=== PATIENT | female | born 1980 | race Caucasian/White ===

== ENCOUNTER 2021-03-04 18:01 | Observation (INO) | payer BC ==
[~2021-03-04] VITALS: Ht 162.6 cm; Wt 49.9 kg
[2021-03-04] MEDS ORDERED: ONDANSETRON HCL INJ 2MG/ML 2ML 2 MG/ML VIAL IV STA (18:10)
[2021-03-04] MEDS ORDERED: MORPHINE SULFATE INJ 4 MG/ML INJ 1ML IV ONE (18:15)
[2021-03-04] MEDS ORDERED: HYDROMORPHONE 1MG/1ML INJ IV STA (20:26)
[2021-03-04 20:32] LABS: BASOPHILS # (AUTO) 0.1 (0.0-0.1); BASOPHILS % 1.1 % (0.0-1.0); EOSINOPHILS # (AUTO) 0.1 (0.0-0.4); EOSINOPHILS % 1.7 % (0.0-6.0); HEMATOCRIT 26.3 % (34.2-44.1); LYMPHOCYTES # (AUTO) 1.6 (1.0-3.2); LYMPHOCYTES % 29.7 % (18.0-39.1); MEAN CORPUSCULAR HEMOGLOBIN 24.1 pg (28-32); MEAN CORPUSCULAR HGB CONC 30.4 g/dL (31-35); MEAN CORPUSCULAR VOLUME 79.2 fL (81-99); MONOCYTES # (AUTO) 0.5 (0.2-0.8); NEUTROPHILS % 57.1 % (38.7-80.0); PLATELET COUNT 373 x10e3/uL (140-360); RED BLOOD COUNT 3.32 x10e6/uL (3.6-5.1)
[2021-03-04 20:36] LABS: INR 0.81; PROTHROMBIN TIME 11.7 seconds (11.9-14.5)
[2021-03-04 20:46] LABS: ALANINE AMINOTRANSFERASE 24 IU/L (0-55); ALBUMIN 3.8 g/dL (3.5-5.0); ALBUMIN/GLOBULIN RATIO 1.1 (0.8-2.0); ALKALINE PHOSPHATASE 69 IU/L (40-150); ANION GAP 14.9 mmol/L (8-16); BLOOD UREA NITROGEN 9 mg/dL (7-26); BUN/CREATININE RATIO 11 (6-25); CALCIUM 8.6 mg/dL (8.4-10.2); CARBON DIOXIDE 23 mmol/L (22-29); CHLORIDE 102 mmol/L (98-107); CREATININE, SERUM 0.82 mg/dL (0.57-1.11); EST GLOMERULAR FILTRATION RATE > 60 ML/MIN (60-); GLUCOSE 91 mg/dL (74-118); POTASSIUM 3.9 mmol/L (3.5-5.1); SODIUM 136 mmol/L (136-145)
[2021-03-05] MEDS: ONDANSETRON HCL INJ 2MG/ML 2ML 2 MG/ML VIAL IV PRN ×2 (00:08→04:40)
[2021-03-05] MEDS: MORPHINE SULFATE INJ 4 MG/ML INJ 1ML IV PRN ×4 (00:08→15:46)
[2021-03-05 04:01] VITALS: BP 125/90
[2021-03-05] MEDS ORDERED: DEXILANT60 MG GT (04:06)
[2021-03-05] MEDS ORDERED: VIIBRYD40 MG GT (04:06)
[2021-03-05] MEDS ORDERED: TIROSINT125 MCG PO (04:06)
[2021-03-05] MEDS ORDERED: DROSPIRENONE-E1 EAC1 (04:06)
[2021-03-05] MEDS ORDERED: METHYLPHENIDATE20 MG GT (04:06)
[2021-03-05] MEDS ORDERED: PROTRIPTYLINE H10 MG GT (04:06)
[2021-03-05] MEDS ORDERED: MOTEGRITY1 MG GT (04:06)
[2021-03-05] MEDS ORDERED: PREGABALIN200 MG GT (04:06)
[2021-03-05] MEDS ORDERED: ESZOPICLONE3 MG GT (04:06)
[2021-03-05] MEDS ORDERED: MIRALAX17 GM PO (04:06)
[2021-03-05] MEDS ORDERED: OLANZAPINE15 MG GT (04:06)
[2021-03-05] MEDS ORDERED: LINZESS290 MCG PO (04:06)
[2021-03-05] MEDS ORDERED: LEVOTHYROXINE SODIUM 125 MCG TAB PO SCH (06:00)
[2021-03-05 08:53] VITALS: BP 112/82
[2021-03-05] MEDS ORDERED: PROTRIPTYLINE HCL 5 MG GT SCH (09:00)
[2021-03-05] MEDS ORDERED: LINACLOTIDE 145 MCG CAPSULE PO SCH (09:00)
[2021-03-05] MEDS ORDERED: POLYETHYLENE GLYCOL 3350 17 GM PACK PO SCH (09:00)
[2021-03-05] MEDS ORDERED: METHYLPHENIDATE HCL 10 MG TAB GT SCH (09:00)
[2021-03-05] MEDS ORDERED: PREGABALIN 50 MG CAP GT SCH (09:00)
[2021-03-05 09:32] VITALS: BP 112/82
[2021-03-05] MEDS ORDERED: PANTOPRAZOLE SOD 40 MG TABEC PO SCH (11:00)
[2021-03-05] MEDS ORDERED: TYLENOL # 31 EA PO ×2 (12:15→15:19)
[2021-03-05 12:28] VITALS: BP 124/84
[2021-03-05] MEDS ORDERED: Vilazodone Hydrochloride (Viibryd) 40 MG NG SCH (17:00)
[2021-03-05] MEDS ORDERED: OLANZAPINE 5 MG TAB GT SCH (21:00)
[2021-03-05] MEDS ORDERED: Eszopiclone 3 MG NG SCH (21:00)
== END 2021-03-05 16:30 | disposition home or self-care (01) ==
LOC: ER 18:32 → ERHOLD 21:09 → IMCU 03-05 03:31
PROVIDERS: ADMIT Internal Medicine; ATTEND Internal Medicine
DX: S42.212A Unspecified displaced fracture of surgical neck of left humerus, initial encounter for closed fracture (principal); W19.XXXA Unspecified fall, initial encounter; Y93.9 Activity, unspecified; D50.9 Iron deficiency anemia, unspecified; Z20.822 Contact with and (suspected) exposure to COVID-19
CPT/HCPCS: 36415; 71045; 73030; 80053; 85025; 85610; 99284; G0378 ×2; J1170; J2270 ×2; J2405 ×2; U0002

== ENCOUNTER 2021-03-15 13:21 | Inpatient (IN) | payer BC ==
[2021-03-13 10:33] LABS: BASOPHILS % 0.5 % (0.0-1.0); EOSINOPHILS # (AUTO) 0.1 (0.0-0.4); EOSINOPHILS % 0.8 % (0.0-6.0); HEMATOCRIT 25.8 % (34.2-44.1); HEMOGLOBIN 7.7 g/dL (12.0-16.0); LYMPHOCYTES # (AUTO) 0.9 (1.0-3.2); LYMPHOCYTES % 11.8 % (18.0-39.1); MEAN CORPUSCULAR HGB CONC 29.8 g/dL (31-35); MEAN CORPUSCULAR VOLUME 80.4 fL (81-99); MONOCYTES # (AUTO) 0.7 (0.2-0.8); MONOCYTES % 9.7 % (4.4-11.3); NEUTROPHILS # (AUTO) 5.7 (2.1-6.9); NEUTROPHILS % 76.5 % (38.7-80.0); PLATELET COUNT 418 x10e3/uL (140-360); RED BLOOD COUNT 3.21 x10e6/uL (3.6-5.1); RED CELL DISTRIBUTION WIDTH 17.8 % (11.7-14.4)
[~2021-03-15] VITALS: Ht 165.1 cm; Wt 53.5 kg
[~2021-03-15 13:21] MED LIST: DEXILANT60 MG PO; DROSPIRENONE-E1 EAC1; ESZOPICLONE3 MG GT; LINZESS290 MCG PO; METHYLPHENIDATE20 MG GT; MIRALAX17 GM PO; MOTEGRITY1 MG GT; OLANZAPINE15 MG GT; PREGABALIN200 MG GT; PROTRIPTYLINE H10 MG GT; TIROSINT125 MCG PO; TYLENOL # 31 EA PO; VIIBRYD40 MG GT
[2021-03-15] MEDS ORDERED: TYLENOL325 MG PO ×2 (13:32→13:33)
[2021-03-15] MEDS ORDERED: CEFAZOLIN SOD 1 GM/NS 50ML 100 ML IV ONE (13:33)
[2021-03-15] MEDS ORDERED: ROCURONIUM BROMIDE 10 MG/ML 5ML VIAL IV ONE (13:42)
[2021-03-15] MEDS ORDERED: NEOSTIGMINE 1 MG/ML 10ML VIAL ONE (13:42)
[2021-03-15] MEDS ORDERED: LIDOCAINE HCL 2% LOCAL INJ 5 ML SDV VIAL INJ ONE (13:42)
[2021-03-15] MEDS ORDERED: ONDANSETRON HCL INJ 2MG/ML 2ML 2 MG/ML VIAL ONE (13:42)
[2021-03-15] MEDS ORDERED: PROPOFOL IV EMULSION 10 MG/ML 20 ML VIAL ONE (13:42)
[2021-03-15] MEDS ORDERED: DEXAMETHASONE SOD PHOS INJ 4 MG/ML VIAL ONE (13:42)
[2021-03-15] MEDS ORDERED: KETOROLAC TROMETHAMINE 30 MG/ML VIAL ONE (13:42)
[2021-03-15] MEDS ORDERED: VANCOMYCIN HCL 1,000 MG ONE (15:59)
[2021-03-15] MEDS ORDERED: BUPIVACAINE HCL 0.5% INJ 30 ML VIAL INJ ONE (16:14)
[2021-03-15 16:53] LABS: HEMOGLOBIN 6.8 g/dL (12.0-16.0)
[2021-03-15 16:54] LABS: HEMATOCRIT 23.6 % (34.2-44.1)
[2021-03-15] MEDS ORDERED: HYDROMORPHONE 1MG/1ML INJ ONE (16:57)
[2021-03-15] MEDS ORDERED: HYDROCODONE/APAP 5MG-325MG TAB PO PRN (17:00)
[2021-03-15] MEDS ORDERED: HYDROCODONE/APAP 7.5MG-325MG 1 EA TAB PO PRN (17:00)
[2021-03-15] MEDS ORDERED: KETOROLAC TROMETHAMINE 30 MG/ML VIAL IM PRN (17:00)
[2021-03-15 17:45] VITALS: BP 131/76
[2021-03-15] MEDS ORDERED: MIDAZOLAM HCL 2 MG/2 ML VIAL ONE (17:50)
[2021-03-15] MEDS ORDERED: FENTANYL CITRATE/PF 100MCG/2 ML INJ ONE (17:50)
[2021-03-15] MEDS ORDERED: SODIUM CHLORIDE 0.9% 250ML 250 ML IV ONE (18:45)
[2021-03-15 20:05] VITALS: BP 131/89
[2021-03-15 20:30] VITALS: BP 131/89
[2021-03-15] MEDS: MORPHINE SULFATE INJ 4 MG/ML INJ 1ML IV PRN (22:25)
[2021-03-15] MEDS ORDERED: SODIUM CHLORIDE 0.9% 250ML 250 ML ONE (22:29)
[2021-03-15] MEDS ORDERED: YAZ 28 TABLET1 EACH PO (23:04)
[2021-03-15] MEDS ORDERED: MOTEGRITY1 MG PO (23:04)
[2021-03-16] VITALS (8 sets, daily range): BP systolic 113–128; BP diastolic 71–87
[2021-03-16] MEDS ORDERED: SODIUM CHLORIDE 0.9% 250ML 250 ML ONE (02:00)
[2021-03-16] MEDS: VANCOMYCIN 1GM/NS 250 ML 250 ML IV SCH ×2 (02:09→13:46)
[2021-03-16] MEDS: MORPHINE SULFATE INJ 4 MG/ML INJ 1ML IV PRN (04:12)
[2021-03-16 06:36] LABS: HEMATOCRIT 25.9 % (34.2-44.1); HEMOGLOBIN 8.1 g/dL (12.0-16.0)
[2021-03-16] MEDS ORDERED: POLYETHYLENE GLYCOL 3350 17 GM PACK PO PRN (10:30)
[2021-03-16] MEDS ORDERED: DEXTROSE 50% SYRINGE 50 ML IV PRN (10:30)
[2021-03-16] MEDS ORDERED: ONDANSETRON HCL INJ 2MG/ML 2ML 2 MG/ML VIAL IV PRN (10:30)
[2021-03-16] MEDS ORDERED: HYDRALAZINE HCL 20 MG/ML VIAL IV PRN (10:30)
[2021-03-16] MEDS ORDERED: POTASSIUM CHLORIDE 20 MEQ TAB CR PO PRN (10:30)
[2021-03-16] MEDS ORDERED: DIPHENHYDRAMINE HCL 25 MG CAP PO PRN (10:30)
[2021-03-16] MEDS ORDERED: MELATONIN 5 MG TABLET PO PRN (10:30)
[2021-03-16] MEDS ORDERED: DOCUSATE SODIUM 100 MG CAP PO PRN (10:30)
[2021-03-16] MEDS ORDERED: ACETAMINOPHEN 325 MG TAB PO PRN (10:30)
[2021-03-16] MEDS ORDERED: NALOXONE HCL INJ 0.4 MG/ML AMP ONE (12:37)
[2021-03-16] MEDS ORDERED: NALOXONE HCL INJ 0.4 MG/ML AMP IV PRN (12:45)
[2021-03-16] MEDS: KETOROLAC TROMETHAMINE 30 MG/ML VIAL IV SCH ×3 (12:45→17:42)
[2021-03-16] MEDS ORDERED: MORPHINE SULFATE INJ 2 MG/ML SYR IV PRN (12:45)
[2021-03-16] MEDS ORDERED: HYDROCODONE/APAP 5MG-325MG TAB PO PRN (12:45)
[2021-03-16 13:38] LABS: BASOPHILS # (AUTO) 0.1 (0.0-0.1); BASOPHILS % 0.5 % (0.0-1.0); EOSINOPHILS % 0.3 % (0.0-6.0); HEMATOCRIT 30.2 % (34.2-44.1); HEMOGLOBIN 9.2 g/dL (12.0-16.0); LYMPHOCYTES # (AUTO) 1.8 (1.0-3.2); LYMPHOCYTES % 19.7 % (18.0-39.1); MEAN CORPUSCULAR HEMOGLOBIN 24.5 pg (28-32); MEAN CORPUSCULAR HGB CONC 30.5 g/dL (31-35); MEAN CORPUSCULAR VOLUME 80.5 fL (81-99); MONOCYTES # (AUTO) 0.7 (0.2-0.8); NEUTROPHILS # (AUTO) 6.5 (2.1-6.9); NEUTROPHILS % 70.3 % (38.7-80.0); PLATELET COUNT 489 x10e3/uL (140-360); RED BLOOD COUNT 3.75 x10e6/uL (3.6-5.1); RED CELL DISTRIBUTION WIDTH 17.5 % (11.7-14.4)
[2021-03-16 13:58] LABS: ANION GAP 17.9 mmol/L (8-16); BLOOD UREA NITROGEN 8 mg/dL (7-26); BUN/CREATININE RATIO 11 (6-25); CALCIUM 8.6 mg/dL (8.4-10.2); CARBON DIOXIDE 17 mmol/L (22-29); CHLORIDE 110 mmol/L (98-107); CREATININE, SERUM 0.71 mg/dL (0.57-1.11); EST GLOMERULAR FILTRATION RATE > 60 ML/MIN (60-); GLUCOSE 87 mg/dL (74-118); POTASSIUM 3.9 mmol/L (3.5-5.1); SODIUM 141 mmol/L (136-145)
[2021-03-16] MEDS ORDERED: METHYLPHENIDATE HCL 10 MG TAB GT SCH (15:00)
[2021-03-16] MEDS ORDERED: ENOXAPARIN SOD INJ 40 MG/0.4 ML SYR SC SCH (17:00)
[2021-03-16] MEDS: PROTRIPTYLINE GT SCH ×2 (17:06→21:19)
[2021-03-16] MEDS ORDERED: OLANZAPINE 5 MG TAB GT SCH (21:00)
[2021-03-16] MEDS ORDERED: NON-FORMULARY MEDICATION (Vilazodone Hydrochloride (Viibryd) 40 MG) GT SCH (21:00)
[2021-03-16] MEDS: PREGABALIN 50 MG CAP PO SCH (21:20)
[2021-03-16] MEDS: HYDROCODONE/APAP 7.5MG-325MG 1 EA TAB PO PRN (22:12)
[2021-03-17 00:12] VITALS: BP 122/80
[2021-03-17 04:10] VITALS: BP 115/85
[2021-03-17] MEDS: HYDROCODONE/APAP 7.5MG-325MG 1 EA TAB PO PRN (04:28)
[2021-03-17] MEDS: KETOROLAC TROMETHAMINE 30 MG/ML VIAL IV SCH ×2 (06:47→12:03)
[2021-03-17 06:53] LABS: BASOPHILS % 0.6 % (0.0-1.0); EOSINOPHILS # (AUTO) 0.1 (0.0-0.4); EOSINOPHILS % 1.7 % (0.0-6.0); HEMATOCRIT 25.5 % (34.2-44.1); HEMOGLOBIN 7.9 g/dL (12.0-16.0); LYMPHOCYTES # (AUTO) 1.8 (1.0-3.2); LYMPHOCYTES % 27.7 % (18.0-39.1); MEAN CORPUSCULAR HEMOGLOBIN 25.1 pg (28-32); MONOCYTES # (AUTO) 0.7 (0.2-0.8); MONOCYTES % 11.1 % (4.4-11.3); NEUTROPHILS # (AUTO) 3.7 (2.1-6.9); NEUTROPHILS % 57.1 % (38.7-80.0); PLATELET COUNT 516 x10e3/uL (140-360); RED BLOOD COUNT 3.15 x10e6/uL (3.6-5.1); RED CELL DISTRIBUTION WIDTH 17.5 % (11.7-14.4)
[2021-03-17 07:12] LABS: ANION GAP 10.9 mmol/L (8-16); BLOOD UREA NITROGEN 7 mg/dL (7-26); BUN/CREATININE RATIO 12 (6-25); CALCIUM 8.3 mg/dL (8.4-10.2); CARBON DIOXIDE 24 mmol/L (22-29); CHLORIDE 111 mmol/L (98-107); EST GLOMERULAR FILTRATION RATE > 60 ML/MIN (60-); GLUCOSE 85 mg/dL (74-118); POTASSIUM 3.9 mmol/L (3.5-5.1); SODIUM 142 mmol/L (136-145)
[2021-03-17] MEDS ORDERED: PANTOPRAZOLE SOD 40 MG TABEC PO SCH (07:30)
[2021-03-17 08:16] VITALS: BP 124/83
[2021-03-17] MEDS: METHYLPHENIDATE HCL 10 MG TAB GT SCH ×2 (08:23→12:03)
[2021-03-17] MEDS: PREGABALIN 50 MG CAP PO SCH (08:24)
[2021-03-17] MEDS: PROTRIPTYLINE GT SCH (08:27)
[2021-03-17] MEDS ORDERED: NON-FORMULARY MEDICATION (Vilazodone Hydrochloride (Viibryd) 40 MG) GT SCH (09:00)
[2021-03-17] MEDS ORDERED: PRUCALOPRIDE SUCCINATE 1 MG PO SCH (09:00)
[2021-03-17 09:16] VITALS: BP 124/83
[2021-03-17 12:22] VITALS: BP 136/93
[2021-03-17 12:23] VITALS: BP 126/81
[2021-03-17 12:39] LABS: HEMOGLOBIN 8.5 g/dL (12.0-16.0)
== END 2021-03-17 14:55 | disposition home or self-care (01) | DRG 494 ==
LOC: OR 13:21 → PACU V 16:41 → MED/SURG 18:06
PROVIDERS: ADMIT Internal Medicine; ATTEND Internal Medicine
PROC: 0PSD04Z Reposition Left Humeral Head with Internal Fixation Device, Open Approach (ICD-10-PCS; 2021-03-15)
PROC: 30233N1 Transfusion of Nonautologous Red Blood Cells into Peripheral Vein, Percutaneous Approach (ICD-10-PCS; 2021-03-15)
PROC: 0PS604Z Reposition Left Scapula with Internal Fixation Device, Open Approach (ICD-10-PCS; principal; 2021-03-15 15:30)
DX: S42.202A Unspecified fracture of upper end of left humerus, initial encounter for closed fracture (principal); W18.39XA Other fall on same level, initial encounter; Y93.H2 Activity, gardening and landscaping; Y92.007 Garden or yard of unspecified non-institutional (private) residence as the place of occurrence of the external cause; D64.9 Anemia, unspecified; F90.9 Attention-deficit hyperactivity disorder, unspecified type; F99 Mental disorder, not otherwise specified; E03.9 Hypothyroidism, unspecified; Z20.822 Contact with and (suspected) exposure to COVID-19; G89.4 Chronic pain syndrome; G62.9 Polyneuropathy, unspecified
CPT/HCPCS: 36415; 76000; 80048; 81025; 83605; 85014; 85018; 85025; 86850; 86900; 86920; C1713; C1776; J0690; J1100; J1170; J1650; J1885; J2001; J2250; J2270; J2310; J2405; J2710; J3010; J3370; J7050; P9016; U0002

== ENCOUNTER 2025-06-19 21:34 | Emergency (ER) | payer BC ==
[~2025-06-19] VITALS: Ht 165.1 cm; Wt 58.1 kg
[~2025-06-19 21:34] MED LIST changes: +MOTEGRITY1 MG PO; +TYLENOL325 MG PO; +YAZ 28 TABLET1 EACH PO
[2025-06-19 22:27] VITALS: PULSE 95; RESP 19; TEMP 98.9
[2025-06-20 00:55] VITALS: BP 121/82; PULSE 87; RESP 17; TEMP 98.6; O2SAT 100
== END 2025-06-20 01:03 | disposition home or self-care (01) ==
LOC: ER 06-20 00:55
DX: Z20.822 Contact with and (suspected) exposure to COVID-19 (principal); J45.909 Unspecified asthma, uncomplicated; D64.9 Anemia, unspecified; K21.9 Gastro-esophageal reflux disease without esophagitis; M79.7 Fibromyalgia; F41.9 Anxiety disorder, unspecified; F32.A Depression, unspecified; Z85.850 Personal history of malignant neoplasm of thyroid
CPT/HCPCS: 99283